=== PATIENT | female | born 1965 | race Caucasian/White ===

== ENCOUNTER → 2022-07-01 | Day surgery (SDC) | payer OTHER ==
[~2022-07-01] VITALS: Ht 162.6 cm; Wt 68.9 kg
[~2022-07-01] MED LIST: CARDIZEM 30MG T30 MG PO; CELEXA40 MG PO; DILTIAZEM ER240 M2 PO; FLONASE SPRAY; KLONOPIN1 MG PO; KLOR-CON 1010 MEQ PO; LASIX 40 MG TAB40 MG PO; LOW DOSE ASPIRI81 MG PO; NEXIUM40 MG PO; NITROSTAT0.4 MG PO; PERCOCET 5/325 T1 EA PO; PROAIR HFA8.5 GM INH; XIIDRA 5% EYEBOTH; ZOCOR20 MG PO
[2022-07-01 12:30] LABS: BUN/CREATININE RATIO 14 (0-10)
== END | disposition home or self-care (01) ==
LOC: OR 07:30
PROVIDERS: Orthopaedic Surgery
DX: S52.572A Other intraarticular fracture of lower end of left radius, initial encounter for closed fracture (principal); W01.0XXA Fall on same level from slipping, tripping and stumbling without subsequent striking against object, initial encounter; I10 Essential (primary) hypertension; K21.9 Gastro-esophageal reflux disease without esophagitis; Z79.82 Long term (current) use of aspirin; Z79.899 Other long term (current) drug therapy; Z88.0 Allergy status to penicillin; Z88.2 Allergy status to sulfonamides; Z88.5 Allergy status to narcotic agent
CPT/HCPCS: 73110; 76000; 80048; 93005; C1713; J0690; J1100; J1885; J2001; J2250; J2405; J2704; J2795; J3010